=== PATIENT | female | born 1955 | race Caucasian/White ===

== ENCOUNTER 2019-08-23 02:24 | Observation (INO) | payer OTHER ==
--- OUTSIDE RECORDS SUMMARY | 2019-08-23 02:26 | XMS REPORT | Continuity of Care Document ---
:1955 Author Organization [employer] Care Team Providers Name Role Phone mobileo Unavailable Un available Problems Problem Status Onset Date Classification Date Comments Sour ce Reported 719.46 - Active 02/06/2013 [facility] S G [facility] PAIN-L/LE Joint Medications No Data Provided for This Section Allergies, Adverse Reactions, Alerts No Known Medication Allergies Immunizations No Data Provided for This Section Results No Data Provided for This Section Pathology Reports No Data Provided for This Section Diagnostic Reports Report Value Date Source Knee wo contrast MRI MRI of the right Knee 02/09/2013 OP ID [facility] History: pain. Comparison Study: none Technique: The study was pe rformed on a high field magnet without intravenous contrast. Findings: Menisci: There is no evidence of meniscal tear. Cruciate Ligaments: Anterior and posterior cruc iate ligaments are intact. Collateral Ligaments: Medial collateral ligamen t is intact. Lateral collateral complex appears intact. The patellar and quadriceps tendons are intact. Osseous Structures: No bone contusions are iden tified. The articular cartilage of the medial and latera l compartment is preserved. Soft Tissues: There is a small joint effusion . There is a 3 cm multilobulat ed Roe's cyst with fluid extending inferiorly along the fascial planes. Patellofemoral Compartment: Grade 3/4 chondromalacia is noted at the patella apex and to a lesser extent the medial facet. There is also mild grade 2 chondral malacia trochlear apex. Medial and lateral patellar retinacula appear in tact. Impression: No meniscal tear or cruciate ligament disruption . Moderate chondromalacia holguin lla femoral compartment primarily involving the patella apex and medial facet. Roe's cyst with free fluid extending inferiorly along the fascial planes to the proximal calf.. Dictation Code: 100 Consultation Notes No Data Provided for This Section Discharge Summaries No Data Provided for This Section History and Physicals No Data Provided for This Section Vital Signs No Data Provided for This Section Encounters Location Location Encounter Encounter Reason Attending ADM NE Stat us Source Details Type Number For Provider Date Date Visit OD [id number] 719.46 ALI 02/09 Active [facility] O PID - JOINT [facility] PA[facility]-L/ & Joint LE Procedures No Data Provided for This Section Assessment and Plan No Data Provided for This Section Plan of Care No Data Provided for This Section Social History No Data Provided for This Section Family History No Data Provided for This Section Advance Directives No Data Provided for This Section Functional Status No Data Provided for This Section
--- OUTSIDE RECORDS SUMMARY | 2019-08-23 02:26 | XMS REPORT | Clinical Summary ---
:1955 Author Organization [facility] Address [address] [place] [address] Care Team Providers Name Role Phone Leticia Vides MD Primary Care Provider Allergies Not on File Medications Not on file Active Problems Not on file Social History Tobacco Use Types Packs/Day Years Used Date Never Assessed Sex Assigned at Date Recorded Not on file Job Start Date Occupation Industry Not on file Not on file Not on file Travel History Travel Start Travel End No recent travel history available. 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
--- OUTSIDE RECORDS SUMMARY | 2019-08-23 02:26 | XMS REPORT ---
:1955 Author Organization [facility] t Address [address] [place] [address] Care Team Providers Name Role Phone Peewee LEVY Primary Care Physician Diallo LEVY, A Attending Clinician Doctor Unassigned, Name Attending Clinician Unavailable Problems Condition Condition Condition Status Onset Resolution Last Treating Co mments Source Name Details Category Date Date Treatment Clinician Date 46 - Diagnosis Active 2012-032013-02-09 M H OPID JOINT 04-08 17:46:00 [facility] PAIN-L/LE 719.46 - 00:01: & J oint JOINT 00 PAIN-L/LE Active 02/06/2013 MH [facility]ID [facility] Allergies, Adverse Reactions, Alerts This patient has no known allergies or adverse reactions. Social History Social Habit Start Date Stop Date Quantity Comments Source Sex Assigned At [place] Medications This patient has no known medications. Procedures This patient has no known procedures. Plan of Care Planned Activity Planned Date Details Comments Source Future Scheduled 2019-10-24 INFLUENZA VACCINE [facility] 00:00:00 [code = INFLUENZA VACCINE] Future Scheduled 2018 65+ PNEUMOCOCCAL [facility] 00:00:00 VACCINE (1 of 2 - PCV13) [code = 65+ PNEUMOCOCCAL VACCINE (1 of 2 - PCV13)] Future Scheduled 2003-12-17 BREAST CANCER [facility]odist Test 00:00:00 SCREENING [code = BREAST CANCER SCREENING] Future Scheduled 2003-12-17 COLONOSCOPY SCREENING [facility] Religion Test 00:00:00 [code = COLONOSCOPY SCREENING] Future Scheduled 2003-12-17 SHINGLES VACCINES (#1) [place] [facility] 00:00:00 [code = SHINGLES VACCINES (#1)] Future Scheduled 1974 Screening for [facility] Test 00:00:00 malignant neoplasm of cervix (procedure) [code = 373793822] Encounters Start End Encounter Admission Attending Care Care Encounter Source Date/Time Date/Time Type Type Clinicians Facility Department ID 2019-04-12 2019-04-12 [facility] [id number] 00:00:00 00:00:00 Management [facility] [id number] [place] [id number] [facility] [phone] [place] [address] [address] 2019-04-07 2019-04-07 [facility] [id number] 14:15:00 23:59:00 Encounter [facility] [place] [id number] [place] [id number] [place] [id number] 2019-04-07 2019-04-07 Office [facility] [id number] 13:04:11 13:54:35 Visit [facility] [id number] [place] [id number] [facility] [phone] [place] [address] [address] 2018-10-24 2018-10-24 Orders Doctor STACEY [id number] 00:00:00 00:00:00 Only Unassigned, GIFTY [id number] [place] [facility] [id number] 2013-02-09 2013-02-09 Outpatient MHIEALT MH[facility]ALT [id number] [facility] 17:37:00 23:59:00 Outpat i ent Imaging - Brittnee Haley 2013-02-09 2013-02-09 OD MHIEALT MHIEALT [id number] MH OPID 17:37:00 17:37:00 00 [facility] Results This patient has no known results.
[2019-08-23 03:12] LABS: Absolute Lymphocytes (CBC) 0.7 K/uL (0.7-4.9); Basophils % 1.3 % (0-1.3); Lymphocytes % 17.5 % (15.3-44.8); MPV 8.5 fL (7.6-11.3); RBC Red Blood Cell Count 4.01 M/uL (3.86-4.86)
[2019-08-23 03:13] LABS: Protime INR 0.91
[2019-08-23 03:31] LABS: ALT/SGPT 37 U/L (12-78); AST/SGOT 32 U/L (15-37); Albumin 3.7 g/dL (3.4-5.0); Alkaline Phosphatase 67 U/L (45-117); BUN Blood Urea Nitrogen 22 mg/dL (7-18); Bicarbonate 26 mmol/L (21-32); Bilirubin Direct 0.1 mg/dL (0-0.2); Bilirubin Total 0.4 mg/dL (0.2-1.0); Glucose Level 107 mg/dL (74-106); Magnesium 2.1 mg/dL (1.8-2.4); NT PRO-BNP 274 pg/mL (<125); Potassium 3.9 mmol/L (3.5-5.1); Protein, Total 6.7 g/dL (6.4-8.2); Sodium Level 141 mmol/L (136-145); Troponin (Emerg Dept Use Only) < 0.02 ng/mL (0.0-0.045)
[2019-08-23] MEDS ORDERED: ASPIRIN 81 MG CHEWABLE TABLET ONE (06:31)
--- NOTE | 2019-08-23 08:09 | P.HP ---
Certification for Inpatient Patient admitted to: Observation With expected LOS: <2 Midnights Practitioner: I am a practitioner with admitting privileges, knowledge of patient current condition, hospital course, and medical plan of care. Services: Services provided to patient in accordance with Admission requirements found in Title 42 Section 412.3 of the Code of Federal Regulations Patient History Date of Service: 08/23/19 Reason for admission: Chest pain History of Present Illness: 63-year-old woman with a history of hypertension and hyperlipidemia presented emergency department with a complaint of chest pain of onset last night. Chest pain located in the left anterior chest, radiating to the left shoulder, no relieving or aggravating factors, intermittent in nature, maximum intensity rated as 5/10. No associated nausea or diaphoresis. Patient stated she did some paint job yesterday and thinks her chest pain may be related to that. EKG in the ED demonstrates sinus bradycardia, no significant ischemic changes. Initial troponin is negative. Chest x-ray shows no acute disease. Patient is placed under observation for ACS rule out. Allergies N Allergy (Uncoded 09/02/15 00:08) Unknown NK Allergy (Uncoded 02/06/15 20:09) Unknown Home Medications: Atorvastatin Calcium [Lipitor*] 20 mg PO DAILY 09/02/15 Clopidogrel Bisulfate [Clopidogrel] 75 mg PO DAILY 09/02/15 Fluoxetine HCl 20 mg PO DAILY 09/02/15 Lisinopril 10 mg PO DAILY 09/02/15 - Past Medical/Surgical History Diabetic: No -: HTN -: TIA -: breast ca -: hyperlipidemia -: L hip repair -: L mastectomy - Family History Father -: Heart disease, Kidney disease Mother -: Heart disease - Social History Smoking Status: Never smoker Alcohol use: No CD- Drugs: No Caffeine use: Yes Review of Systems Other: Except as documented, all other systems reviewed and negative. Physical Examination - Physical Exam General: Alert, In no apparent distress, Oriented x3 HEENT: Mucous membr. moist/pink, Sclerae nonicteric Neck: Supple, JVD not distended Respiratory: Clear to auscultation bilaterally, Normal air movement Cardiovascular: No edema, Regular rate/rhythm, Normal S1 S2 Capillary refill: <2 Seconds Gastrointestinal: Normal bowel sounds, Soft and benign, No tenderness Musculoskeletal: No swelling, No erythema Integumentary: No rashes, No erythema Neurological: Normal speech, Normal strength at 5/5 x4 extr - Studies Laboratory Data (last 24 hrs) 08/23/19 02:55: PT 10.7, INR 0.91 08/23/19 02:55: WBC 3.8 L, Hgb 12.8, Hct 36.0, Plt Count 196 08/23/19 02:55: Sodium 141, Potassium 3.9, BUN 22 H, Creatinine 0.79, Glucose 107 H, Magnesium 2.1, Total Bilirubin 0.4, AST 32, ALT 37, Alkaline Phosphatase 67 Assessment and Plan - Problems (Diagnosis) (1) Chest pain Onset Date: 09/02/15 Current Visit: No Status: Acute (2) Hypertension Current Visit: Yes Status: Acute (3) Hyperlipidemia Current Visit: Yes Status: Acute - Plan Place under observation. Trend troponin Start aspirin, metoprolol. Statin Check lipid profile Reconcile and continue home BP meds. - Advance Directives Does patient have a Living Will: Yes Does patient have a Durable POA for Healthcare: Yes
[2019-08-23] MEDS: ASPIRIN EC 81 MG TAB PO SCH (09:18)
[2019-08-23] MEDS: METOPROLOL XL 25 MG TAB PO SCH ×3 (09:18→17:33)
[2019-08-23] MEDS ORDERED: NITROGLYCERIN 0.4 MG/TAB SL PRN (09:18)
[2019-08-23] MEDS: ENOXAPARIN 40 MG/0.4 ML SQ SCH (09:39)
[2019-08-23 10:42] LABS: HDL Cholesterol 73 mg/dL (40-60); LDL Cholesterol, Calculated 68 (<130); Troponin I < 0.02 ng/mL (0.0-0.045)
--- NOTE | 2019-08-23 11:31 | RAD REPORT ---
EXAM DESCRIPTION: Junit Single View08/23/2019 3:11 am CLINICAL HISTORY: Chest pain COMPARISON: 2016 FINDINGS: Lungs are hyperaerated. Inferior lung bases are not entirely included in the field of view and are not evaluated Visualized lungs appear clear of acute infiltrate. Heart is mildly enlarged
[2019-08-23] MEDS ORDERED: METOPROLOL XL 25 MG TAB PO SCH (13:57)
--- NOTE | 2019-08-23 14:05 | EKG ---
Test Date: 2019-08-23 Test Time: 02:41:56 Video Software Engineer: RV MEASUREMENT RESULTS: Intervals: Rate: 59 ID: [id number] QRSD: 76 QT: 478 QTc: 473 [place]: P: 60 ID: [id number] QRS: 1 T: 35 INTERPRETIVE STATEMENTS: Sinus bradycardia Minimal voltage criteria for LVH, may be normal variant Borderline ECG Electronically Signed On 08-23-19 14:04:59 CDT by Shane Chavez
[2019-08-23] MEDS: MORPHINE 4 MG/ML SYR IV PRN ×2 (14:38→20:40)
--- NOTE | 2019-08-23 19:36 | CON ---
Date of Consultation: 08/23/2019 Reason For Consultation: Chest pain. History Of Present Illness: This is a 63-year-old female with history of dyslipidemia, hypertension, CVA. She is on Plavix for that, presented with chest pain last night, left-sided, sharp in nature, radiates to the shoulder, lasted about 30 minutes and went away. She went to sleep and the pain woke her up again around 1:30 and she presented to the emergency room. Feels well now, no chest pain. S he reported doing some painting work at home and she is not sure if that what caused the symptoms. S he reported having stress test done about 2 years ago. She is active, otherwise, no chest pain, no s hortness of breath, or orthopnea. Past Medical History: As outlined above in the HPI. Medications: Refer to reconciliation sheet for detailed list. Allergies: NO KNOWN DRUG ALLERGIES. Social History: She does not smoke or drink. Does not use any drugs. Family History: No premature coronary artery disease or cancer. Review of Systems: All systems reviewed and they were negative except what is mentioned in the HPI. Physical Examination: Vital Signs: Temperature is 97.3, pulse 57, breathing at 18, blood pressure 133/62, saturating 96% o n room air. General: Pleasant middle-aged female, thin body habitus, no apparent distress. Head and Neck: Pupils are equal and reactive to light. Intact eye movements. No JVD. No cervical lymphadenopathy. Neck: Supple. Thyroid is not enlarged. Lungs: Clear to auscultation bilaterally. No rhonchi, rales, or crackles. No accessory muscle use. Heart: Regular rate and rhythm. No extra sounds. Abdomen: Soft, nontender. Bowel sounds positive. No organomegaly. No masses or hernia. No rigidi ty or rebound. Extremities: No edema, clubbing, cyanosis. Intact pulses. Skin: No rash. Neurologic: Alert, awake, and oriented x3. No acute focal deficits appreciated. Laboratory Data: HDL cholesterol 73, LDL 68. Creatinine is 0.79. Troponin x3 are negative. EKG is normal sinus rhythm without acute specific abnormalities. Assessment And Recommendations: 1.Chest pain with risk factors including age, hypertension, dyslipidemia, and history of vascular di sease with cerebrovascular accident in the past. Recommend further evaluation with stress test. Dis cussed the options with the patient obtaining the stress test while in the hospital and she elected t o go home and do the test as an outpatient. We will schedule her for exercise nuclear stress test an d obtain echo as an outpatient. Meanwhile, recommend aspirin 81 mg and continue metoprolol and to re port any further chest pain back in the emergency room. 2.Hypertension, which is well controlled. 3.Dyslipidemia. Excellent lipid profile. Continue current management. I appreciate you letting me see this patient in consultation. /JESSICA Voice ID: [id number] Report ID: [id number]
[2019-08-24 05:33] LABS: Absolute Lymphocytes (CBC) 0.6 K/uL (0.7-4.9); Basophils % 1.2 % (0-1.3); Hematocrit 38.3 % (36.0-45.0); Lymphocytes % 15.2 % (15.3-44.8); MPV 8.1 fL (7.6-11.3); RBC Red Blood Cell Count 4.22 M/uL (3.86-4.86)
[2019-08-24 05:46] LABS: Potassium 4.1 mmol/L (3.5-5.1)
[2019-08-24] MEDS: METOPROLOL XL 25 MG TAB PO SCH (06:00)
[2019-08-24 07:59] VITALS: O2SAT 98
[2019-08-24] MEDS: ENOXAPARIN 40 MG/0.4 ML SQ SCH (08:54)
[2019-08-24] MEDS: ASPIRIN EC 81 MG TAB PO SCH (08:54)
[2019-08-24 09:00] VITALS: BP 115/54
[2019-08-24] MEDS ORDERED: ATORVASTATIN 20 MG TAB PO SCH (09:00)
[2019-08-24] MEDS ORDERED: lisinopriL 10 MG TAB PO SCH (09:00)
[2019-08-24] MEDS ORDERED: FLUOXETINE 20 MG CAP PO SCH (09:00)
[2019-08-24] MEDS ORDERED: CLOPIDOGREL 75 MG TABLET PO SCH (09:00)
[2019-08-24 09:35] VITALS: TEMP 97.8
--- NOTE | 2019-08-24 18:38 | ER ---
Nurse's Notes [facility] Name: Darlin Ireland Age: 63 yrs Sex: Female : 1955 Arrival Date: 08/23/2019 Time: 02:26 Bed 8 Private MD: Diagnosis: Other chest pain Presentation: 08/22 02:33 Chief complaint: Patient states: CHEST PAIN STARTED AN HOUR AGO. APPLIED WARM COMPRESS rv AND IT DID NOT HELP. LEFT SIDE, ON AND OFF, 5/10 PAIN SCALE. SHARP AND NON RADIATING. Coronavirus screen: Proceed with normal triage. Ebola Screen: No symptoms or risks identified at this time. Initial Sepsis Screen: Does the patient meet any 2 criteria? No. Patient's initial sepsis screen is negative. Does the patient have a suspected source of infection? No. Patient's initial sepsis screen is negative. Risk Assessment: Do you want to hurt yourself or someone else? Patient reports no desire to harm self or others. Onset of symptoms was August 23, 2019 at 01:00. 02:33 Method Of Arrival: Ambulatory rv 02:33 Acuity: RAISA 3 rv Triage Assessment: 02:47 General: Appears comfortable, Behavior is calm, cooperative. Pain: Complains of pain in rv anterior aspect of left upper chest Pain does not radiate. Pain currently is 5 out of 10 on a pain scale. Quality of pain is described as sharp, Pain began suddenly, 1 hour ago. Is intermittent. Neuro: Level of Consciousness is awake, alert, obeys commands, Oriented to person, place, time, situation. Cardiovascular: Patient's skin is warm and dry. Rhythm is sinus rhythm. Respiratory: Airway is patent. Derm: Skin is intact. Historical: - Allergies: 02:47 No Known Allergies; rv - PMHx: 02:47 breast cancer; Hyperlipidemia; Hypertension; sarcoidosis; TIA; rv - PSHx: 02:47 HIP SX; rv - Immunization history:: Adult Immunizations up to date. - Social history:: Smoking status: Patient denies any tobacco usage or history of. Screenin:48 Abuse screen: Denies threats or abuse. Denies injuries from another. Nutritional rv screening: No deficits noted. Tuberculosis screening: No symptoms or risk factors identified. Fall Risk None identified. Assessment: 04:14 Reassessment: Patient and/or family updated on plan of care and expected duration. Pain rv level reassessed. Patient is alert, oriented x 3, equal unlabored respirations, skin warm/dry/pink. Patient states feeling better. Patient states symptoms have improved. 06:30 Reassessment: Patient and/or family updated on plan of care and expected duration. Pain rv level reassessed. Patient is alert, oriented x 3, equal unlabored respirations, skin warm/dry/pink. patient updated on the admission plans. patient agreed. symptoms are resolving at this time. 07:25 Reassessment: Repeat troped sent to lab. sv 07:25 General: Appears in no apparent distress. comfortable, well developed, Behavior is sv calm, cooperative, appropriate for age. Pain: Complains of pain in anterior aspect of left upper chest Pain currently is 5 out of 10 on a pain scale. Neuro: Level of Consciousness is awake, alert, obeys commands, Oriented to person, place, time, situation, Moves all extremities. Full function Speech is normal. Cardiovascular: Heart tones S1 S2 present Patient's skin is warm and dry. Pulses are palpable in right radial artery and left radial artery Rhythm is sinus bradycardia. Respiratory: Airway is patent Respiratory effort is even, unlabored, Respiratory pattern is regular, symmetrical, Breath sounds are clear bilaterally. Derm: Skin is pink, warm \T\ dry. 07:52 Reassessment: Attempted to call report, nurse to call back. sv 08:40 Reassessment: Patient appears in no apparent distress at this time. Patient and/or ph family updated on plan of care and expected duration. Pain level reassessed. Report given to Palomo TAY. Vital Signs: 02:33 BP 141 / 65; Pulse 63; Resp 16; Temp 98; Pulse Ox 99% ; Weight 54.43 kg; Height 5 ft. 5 rv in. (165.10 cm); Pain 5/10; 03:42 BP 136 / 81; Pulse 50; Resp 15; Pulse Ox 98% on R/A; rv 04:14 BP 122 / 72; Pulse 52; Resp 13; Temp 98; Pulse Ox 98% on R/A; rv 05:19 BP 112 / 66; Pulse 53; Resp 15; Pulse Ox 97% on R/A; rv 06:13 BP 131 / 76; Pulse 56; Resp 14; Pulse Ox 98% on R/A; rv 07:13 BP 124 / 78; Pulse 53; Resp 15; Pulse Ox 97% ; sv 08:17 BP 116 / 70; Pulse 52; Resp 13; Pulse Ox 97% ; sv 02:33 Body Mass Index 19.97 (54.43 kg, 165.10 cm) rv ED Course: 02:26 Patient arrived in ED. ds1 02:30 Tod Tan, JASVIR is Primary Nurse. rv 02:31 Emmanuel Villanueva MD is Attending Physician. mh7 02:46 Triage completed. rv 02:48 Arm band placed on Patient placed in the treatment room, on a stretcher, Patient rv notified of wait time. 02:48 Patient has correct armband on for positive identification. dry house operator on. Pulse rv ox on. NIBP on. 02:48 No provider procedures requiring assistance completed. Patient maintains SpO2 rv saturation greater than 95% on room air. 02:56 Initial lab(s) drawn, by me, sent to lab. EKG done, by ED staff, reviewed by Emmanuel Villanueva MD. Inserted saline lock: 18 gauge in right forearm, using aseptic technique. Blood collected. 03:11 XRAY Chest (1 view) In Process Unspecified. EDMS 06:16 Mckinley Castro is Hospitalizing Provider. mh7 07:04 Primary Nurse role handed off by Tod Tan RN sv 07:04 Juliana Holliday, JASVIR is Primary Nurse. sv 07:36 Troponin (emerg Dept Use Only) Sent. sv 08:37 Patient admitted, IV remains in place. intact. sv Administered Medications: 06:26 Drug: Aspirin Chewable Tablet 324 mg Route: PO; rv 06:53 Follow up: Response: No adverse reaction rv Outcome: 06:16 Decision to Hospitalize by Provider. mh7 08:38 Admitted to Tele accompanied by tech, via stretcher, room 219, with chart, Report sv called to Palomo TAY 08:38 Condition: stable 08:38 Instructed on the need for admit. 08:45 Patient left the ED. sv Signatures: Dispatcher [employer] EDFL Juliana Holliday RN RN sv Sanford, Demi ds1 Damaris Carter RN RN Tod Tan RN RN rv Holmes, Maurice, MD MD [facility]
--- NOTE | 2019-08-24 18:39 | EDPHYS ---
Physician Documentation [facility] Name: Darlin Ireland Age: 63 yrs Sex: Female : 1955 Arrival Date: 08/23/2019 Time: 02:26 Bed 8 Private MD: ED Physician Emmanuel Villanueva HPI: 08/22 04:26 This 63 yrs old Female presents to ER via Ambulatory with complaints of Chest mh7 Pain,. 04:26 The patient or guardian reports chest pain that is located primarily in the anterior mh7 chest wall, left. Onset: last night. The pain radiates to left neck. Associated signs and symptoms: Pertinent negatives: abdominal pain, cough, diaphoresis, dizziness, headache, lower extremity pain, lower extremity swelling, lightheadedness, nausea, near syncope, palpitations, recent travel, shortness of breath, syncope, vomiting. The chest pain is described as sharp. Duration: The patient or guardian reports multiple episodes, that are intermittent, that wax and wane, with no pattern. Modifying factors: The symptoms are alleviated by nothing. the symptoms are aggravated by nothing. Severity of pain: At its worst the pain was moderate today, in the emergency department the pain has improved moderately. Historical: - Allergies: 02:47 No Known Allergies; rv - PMHx: 02:47 breast cancer; Hyperlipidemia; Hypertension; sarcoidosis; TIA; rv - PSHx: 02:47 HIP SX; rv - Immunization history:: Adult Immunizations up to date. - Social history:: Smoking status: Patient denies any tobacco usage or history of. ROS: 04:26 Constitutional: Negative for fever, chills, and weight loss, Eyes: Negative for injury, mh7 pain, redness, and discharge, ENT: Negative for injury, pain, and discharge, Respiratory: Negative for shortness of breath, cough, wheezing, and pleuritic chest pain, Abdomen/GI: Negative for abdominal pain, nausea, vomiting, diarrhea, and constipation, Back: Negative for injury and pain, : Negative for injury, bleeding, discharge, and swelling, MS/Extremity: Negative for injury and deformity, Skin: Negative for injury, rash, and discoloration, Neuro: Negative for headache, weakness, numbness, tingling, and seizure, Psych: Negative for depression, anxiety, suicide ideation, homicidal ideation, and hallucinations, Allergy/Immunology: Negative for hives, rash, and allergies, Endocrine: Negative for neck swelling, polydipsia, polyuria, polyphagia, and marked weight changes, Hematologic/Lymphatic: Negative for swollen nodes, abnormal bleeding, and unusual bruising. Exam: 04:26 Constitutional: This is a well developed, well nourished patient who is awake, alert, mh7 and in no acute distress. Head/Face: Normocephalic, atraumatic. Eyes: Pupils equal round and reactive to light, extra-ocular motions intact. Lids and lashes normal. Conjunctiva and sclera are non-icteric and not injected. Cornea within normal limits. Periorbital areas with no swelling, redness, or edema. Neck: Trachea midline, no thyromegaly or masses palpated, and no cervical lymphadenopathy. Supple, full range of motion without nuchal rigidity, or vertebral point tenderness. No Meningismus. Chest/axilla: Normal chest wall appearance and motion. Nontender with no deformity. No lesions are appreciated. Cardiovascular: Regular rate and rhythm with a normal S1 and S2. No gallops, murmurs, or rubs. Normal PMI, no JVD. No pulse deficits. Respiratory: Lungs have equal breath sounds bilaterally, clear to auscultation and percussion. No rales, rhonchi or wheezes noted. No increased work of breathing, no retractions or nasal flaring. Abdomen/GI: Soft, non-tender, with normal bowel sounds. No distension or tympany. No guarding or rebound. No evidence of tenderness throughout. Back: No spinal tenderness. No costovertebral tenderness. Full range of motion. Skin: Warm, dry with normal turgor. Normal color with no rashes, no lesions, and no evidence of cellulitis. MS/ Extremity: Pulses equal, no cyanosis. Neurovascular intact. Full, normal range of motion. Neuro: Awake and alert, GCS 15, oriented to person, place, time, and situation. Cranial nerves II-XII grossly intact. Motor strength 5/5 in all extremities. Sensory grossly intact. Cerebellar exam normal. Normal gait. Psych: Awake, alert, with orientation to person, place and time. Behavior, mood, and affect are within normal limits. Vital Signs: 02:33 BP 141 / 65; Pulse 63; Resp 16; Temp 98; Pulse Ox 99% ; Weight 54.43 kg; Height 5 ft. 5 rv in. (165.10 cm); Pain 5/10; 03:42 BP 136 / 81; Pulse 50; Resp 15; Pulse Ox 98% on R/A; rv 04:14 BP 122 / 72; Pulse 52; Resp 13; Temp 98; Pulse Ox 98% on R/A; rv 05:19 BP 112 / 66; Pulse 53; Resp 15; Pulse Ox 97% on R/A; rv 06:13 BP 131 / 76; Pulse 56; Resp 14; Pulse Ox 98% on R/A; rv 07:13 BP 124 / 78; Pulse 53; Resp 15; Pulse Ox 97% ; sv 08:17 BP 116 / 70; Pulse 52; Resp 13; Pulse Ox 97% ; sv 02:33 Body Mass Index 19.97 (54.43 kg, 165.10 cm) rv MDM: 02:53 Patient medically screened. [facility] 06:14 Differential diagnosis: acute myocardial infarction, acute pericarditis, coronary mh7 artery disease congestive heart failure pneumonia, stable angina. HEART Score: History: Moderately Suspicious (1), ECG: Normal (0), Age: > or = 65 years (2), Risk Factors: 1 or 2 risk factors (1), [Hypercholesterolemia] [Hypertension] Troponin: < or = 1 x Normal Limit (0), Total Score = 4. Data reviewed: vital signs, nurses notes, lab test result(s), EKG, radiologic studies, plain films. 08/22 02:55 Order name: Basic Metabolic Panel; Complete Time: 05:14 08/22 02:55 Order name: CBC with Diff; Complete Time: 05:14 08/22 02:55 Order name: LFT's; Complete Time: 05:14 08/22 02:55 Order name: Magnesium; Complete Time: 05:14 08/22 02:55 Order name: NT PRO-BNP; Complete Time: 05:14 08/22 02:55 Order name: PT-INR; Complete Time: 05:14 08/22 02:55 Order name: Troponin (emerg Dept Use Only); Complete Time: 05:14 08/22 02:55 Order name: XRAY Chest (1 view) rv 08/22 02:55 Order name: EKG; Complete Time: 02:56 08/22 02:55 Order name: Cardiac monitoring; Complete Time: 02:55 08/22 02:55 Order name: EKG - Nurse/Tech; Complete Time: 02:55 08/22 07:17 Order name: Troponin (emerg Dept Use Only) 08/22 07:54 Order name: Troponin (Emerg Dept Use Only) [facility] 08/22 02:55 Order name: IV Saline Lock; Complete Time: 02:55 08/22 02:55 Order name: Labs collected and sent; Complete Time: 02:55 08/22 02:55 Order name: O2 Per Protocol; Complete Time: 02:56 08/22 02:55 Order name: O2 Sat Monitoring; Complete Time: 02:55 rv Administered Medications: 06:26 Drug: Aspirin Chewable Tablet 324 mg Route: PO; rv 06:53 Follow up: Response: No adverse reaction rv Disposition: 08/23/19 06:16 Hospitalization ordered by Mckinley Castro for Observation. Preliminary diagnosis is Other chest pain. - Bed requested for Telemetry/MedSurg (observation). - Status is Observation. sv - Condition is Stable. - Problem is new. - Symptoms have improved. Signatures: Dispatcher [employer] EDME Juliana Holliday RN RN sv Botello, Elizabeth eb Vicente, Ronaldo, RN RN rv Holmes, Maurice, MD MD mh7 Corrections: (The following items were deleted from the chart) 07:46 06:16 Hospitalization Ordered by Mckinley Castro for Observation. Preliminary diagnosis eb is Other chest pain. Bed requested for Telemetry/MedSurg (observation). Status is Observation. Condition is Stable. Problem is new. Symptoms have improved. mh7 08:45 07:46 08/23/2019 06:16 Hospitalization Ordered by Mckinley Castro for Observation. sv Preliminary diagnosis is Other chest pain. Bed requested for Telemetry/MedSurg (observation). Status is Observation. Condition is Stable. Problem is new. Symptoms have improved. eb
--- NOTE | 2019-08-24 23:38 | DS ---
Date of Discharge: 08/24/2019 Consultants: Dr. Piper with Cardiology. Discharge Diagnoses: 1.Chest pain, acute coronary syndrome ruled out. 2.Essential hypertension, stable. 3.Mixed hyperlipidemia, stable. 4.History of transient ischemic attack. 5.History of breast cancer. Hospital Course: Patient is a 63-year-old female with past medical history of hypertension, hyperlip idemia, TIA, breast cancer, comes in with chest pain. Patient was admitted to the hospital for furth er evaluation. Cardiac enzymes were negative x3. Her lipid panel showed normal levels. HDL was 73. Her chest x-ray was clear. EKG did not show any acute changes, did show some sinus bradycardia. P rufino was seen by Cardiology and Dr. Piper recommended outpatient workup including cardiac stress t est and echocardiogram. Patient did have some continued pain during the day, however, became asympto matic with treatment. She was then ruled out for ACS and was cleared for discharge for outpatient wo rkup and followup. Patient was asymptomatic. Patient will be continued on beta-blockers. Patient t o follow up with primary care physician in 2-3 days. Follow up with angiography nurse, Dr. Piper in 1 we ek for outpatient stress test and echocardiogram. Return to ER for worsening condition. Continue ca ncer screenings including mammograms. Diet: Heart healthy. Activity: As tolerated. Medications: As per medication reconciliation list. Physical Examination: General: Awake, alert, oriented x3. No acute distress elderly female. CV: S1, S2. No murmurs. Respiratory: Moving air well bilaterally. Abdomen: Soft, nontender, nondistended. Positive bowel sounds. Extremities: No clubbing, cyanosis, or edema. Neurologic: Nonfocal. Code Status: Full. SA/MODL Voice ID: [id number] Report ID: [id number]
== END 2019-08-24 10:12 | disposition home or self-care (01) ==
LOC: ER 02:24 → ERHOLD 07:06 → 2ND 08:38
PROVIDERS: ADMIT Internal Medicine; ATTEND Family Medicine
DX: R07.9 Chest pain, unspecified (principal); E78.2 Mixed hyperlipidemia; I10 Essential (primary) hypertension; Z86.73 Personal history of transient ischemic attack (TIA), and cerebral infarction without residual deficits; Z85.3 Personal history of malignant neoplasm of breast
CPT/HCPCS: 93005; 85025 ×2; 80048 ×2; 36415 ×2; 83735; 85610; 80061; 80076; 84484 ×4; 83880; 71045; 99285; J1650 ×2; G0378 ×3

== ENCOUNTER 2024-10-27 19:29 | Inpatient (IN) | payer BC, OTHER ==
[2024-10-27] MEDS ORDERED: METOPROLOL TARTRATE 5 MG/5 ML INJ IV ONE (20:55)
[2024-10-27] MEDS ORDERED: METOPROLOL TAR 25 MG TAB ONE (20:55)
[2024-10-27 21:03] LABS: Urine Microscopic Reflex YN NO UMIC
[2024-10-27 21:07] LABS: Absolute Lymphocytes (CBC) 0.6 K/uL (0.7-4.9); Hematocrit 35.2 % (36.0-45.0); Hemoglobin 12.8 g/dL (12.0-15.0); MCH 31.5 pg (27.0-35.0); MCHC 36.3 g/dL (32.0-36.0); MCV 86.8 fL (80-100); MPV 8.2 fL (7.6-11.3); Nucleated RBC Absolute Count 0.0 (0-0); Nucleated Red Blood Cells % 0.1 % (0-0); RBC Red Blood Cell Count 4.06 M/uL (3.86-4.86); White Blood Count 4.00 thou/uL (4.3-10.9)
[2024-10-27 21:11] LABS: PT Prothrombin Time 11.4 SECONDS (10-13.0); Protime INR 1.01
--- NOTE | 2024-10-27 21:18 | RAD REPORT ---
EXAMINATION: ONE VIEW CHEST XR CLINICAL INDICATION: PALPITATIONS TECHNIQUE: Frontal chest projection is submitted. Examination is limited by patient positioning and t echnique. COMPARISON: 08/23/2019 FINDINGS: The lungs are diffusely emphysematous but grossly clear. The heart is upper limit of normal in size. No displaced fractures identified. IMPRESSION: COPD without an acute process suspected.
[2024-10-27 21:23] LABS: ALT/SGPT 42.0 U/L (13-56); AST/SGOT 32.0 U/L (15-37); Albumin 3.7 g/dL (3.4-5.0); Albumin/Globulin Ratio 1.3 (1.1-1.8); Alkaline Phosphatase 77.0 U/L (45-117); Anion Gap 9.5 mEq/L (5.0-15.0); BUN Blood Urea Nitrogen 17.0 mg/dL (7-18); Bilirubin Indirect, Calculated 0.4 mg/dL (0.2-0.8); Globulin 2.8 g/dL (2.3-3.5); Glucose Level 115.0 mg/dL (74-106); Magnesium 2.1 mg/dL (1.6-2.4); NT PRO-BNP 792.0 pg/mL (<125); Potassium 3.5 mEq/L (3.5-5.1); Troponin High Sensitivity 15.8 pg/mL (<58.9)
--- NOTE | 2024-10-27 22:01 | RAD REPORT ---
EXAMINATION: CTA CHEST PE CLINICAL INDICATION: PALPITATIONS TECHNIQUE: This examination was performed according to an angiographic protocol with 3D post-processi ng. This involves 3D reconstructions, MIPs, volume rendered images and/or shaded surface rendering. One or more of the following dose reduction techniques were used: Automated exposure control, adjustm ent of the mA and/or kV according to patient size, and/or iterative reconstruction. Unless otherwise specified, incidental findings do not require dedicated imaging follow-up. COMPARISON: 09/01/2015 FINDINGS: PULMONARY ARTERIES: Normal caliber. No evidence of pulmonary emboli to the subsegmental level. THORACIC AORTA: Normal caliber and configuration. Intraluminal assessment not possible due to lack of contrast opacification. LUNGS: Multiple calcified and noncalcified nodules are present, greatest in the right lower lobe.. PLEURA: No pleural effusion. No pneumothorax. MEDIASTINUM AND LYMPH NODES: Calcified mediastinal and hilar lymph nodes. OSSEOUS STRUCTURES AND CHEST WALL: Intact. UPPER ABDOMEN: No significant abnormalities. IMPRESSION: No evidence of pulmonary emboli to the subsegmental level. Numerous calcified and noncalcified nodules greatest in the right lower lobe. Suggest nonemergent fol low-up pulmonology consultation and imaging follow-up per Fleischner criteria.
[2024-10-27] MEDS ORDERED: NA CHLORIDE 0.9% 500 ML ONE (22:32)
--- NOTE | 2024-10-27 23:36 | EDPHYS ---
Physician Documentation [facility] Name: Dralin Ireland Age: 68 yrs Sex: Female : 1955 Arrival Date: 10/27/2024 Time: 19:29 Bed 19 Private MD: ED Physician Hakeem Luther HPI: 10/27 20:15 This 68 yrs old Female presents to ER via Ambulatory with complaints of Irregular Pulse.cp 20:15 The patient presents with a history of irregular heart beat, heart racing. Context: The cp symptoms occur at rest, intermittent. 20:15 Onset: The symptoms/episode began/occurred 1 week(s) ago, and became persistent today. cp Associated signs and symptoms: Pertinent positives: chest pain, Pertinent negatives: cough, fever, SOB, syncope, near-syncope, vomiting. Severity of symptoms: in the emergency department the symptoms are unchanged despite home interventions. Historical: - Allergies: 20:11 No Known Allergies; tb4 - Home Meds: 20:11 lisinopril 10 mg Oral tab 1 tab once daily for Hypertension [Active]; clopidogrel 75 mg tb4 Oral tab 1 tab once daily [Active]; atorvastatin 20 mg Oral tab 1 tab once daily for Mixed Hyperlipidemia [Active]; - PMHx: 20:11 breast cancer; Hyperlipidemia; Hypertension; sarcoidosis; TIA; tb4 - Immunization history:: Adult Immunizations up to date. - Infectious Disease History:: Denies. - Social history:: Smoking status: Patient denies any tobacco usage or history of. Patient/guardian denies using alcohol, street drugs, IV drugs. ROS: 20:25 Cardiovascular: Positive for chest pain, palpitations, Negative for edema, cp 20:25 Eyes: Negative for injury, pain, redness, and discharge, cp 20:25 Constitutional: Negative for body aches, chills, fever, poor PO intake, 20:25 ENT: Negative for drainage from ear(s), ear pain, sore throat, difficulty swallowing, difficulty handling secretions, 20:25 Respiratory: Negative for cough, shortness of breath, wheezing, 20:25 Abdomen/GI: Negative for abdominal pain, vomiting, diarrhea, constipation, 20:25 Back: Negative for pain at rest, pain with movement, 20:25 Neuro: Negative for altered mental status, dizziness, headache, syncope, near syncope, weakness, 20:25 All other systems are negative, Exam: 20:25 Constitutional: The patient appears in no acute distress, alert, awake, cp non-diaphoretic, non-toxic, well developed, well nourished, 20:25 Head/Face: Normocephalic, atraumatic. cp 20:25 Eyes: Periorbital structures: appear normal, Conjunctiva: normal, no exudate, no injection, Sclera: no appreciated abnormality, Lids and lashes: appear normal, bilaterally, 20:25 ENT: External ear(s): are unremarkable, Nose: is normal, Mouth: Lips: moist, Oral mucosa: moist, Posterior pharynx: Airway: no evidence of obstruction, patent, 20:25 Chest/axilla: Inspection: normal, Palpation: is normal, no crepitus, no tenderness, 20:25 Cardiovascular: Rate: tachycardic, Rhythm: regular, Edema: is not appreciated, JVD: is not appreciated, 20:25 Respiratory: the patient does not display signs of respiratory distress, Respirations: normal, no use of accessory muscles, no retractions, labored breathing, is not present, Breath sounds: are clear throughout, no decreased breath sounds, no stridor, no wheezing, 20:25 Abdomen/GI: Inspection: abdomen appears normal, Palpation: abdomen is soft and non-tender, in all quadrants, 20:25 Back: pain, is absent, ROM is normal, 20:25 Neuro: Orientation: to person, place \T\ time. Mentation: is normal, Motor: moves all fours, strength is normal, Sensation: is normal, Gait: is steady, at a normal pace, without difficulty, 20:35 ECG was reviewed by the Attending Physician. cp Vital Signs: 20:08 BP 134 / 84; Pulse 120; Resp 18; Temp 98.7(O); Pulse Ox 97% on R/A; Weight 54.43 kg; tb4 Height 5 ft. 4 in. ; Pain 0/10; 20:34 BP 124 / 86; Pulse 109; Resp 20; Pulse Ox 96% ; sd4 22:26 BP 119 / 69; Pulse 60; Resp 18; Pulse Ox 97% ; sd4 0806 00:43 BP 111 / 61; Pulse 55; Resp 18; Pulse Ox 95% on R/A; sd4 0805 20:08 Body Mass Index 20.60 (54.43 kg, 162.56 cm) tb4 10/27 20:08 Pain Scale: Adult tb4 MDM: 10/27 20:09 Medical Screening Exam initiated cp 23:35 Data reviewed: vital signs, nurses notes, lab test result(s), EKG, radiologic studies, cp CT scan, plain films, and as a result, I will admit patient. 23:35 Differential diagnosis: arrythmia, dehydration, stress disorder, acute MA. Management cp of patient was discussed with the following: Hospitalist: MR Grissom will admit after discussion. Care significantly affected by the following chronic conditions: Hypertension, Cancer. Counseling: I had a detailed discussion with the patient and/or guardian regarding the historical points, exam findings, and any diagnostic results supporting the discharge/admit diagnosis, lab results, radiology results. Response to treatment: the patient's symptoms have markedly improved after treatment, and as a result, I will admit patient. 10/27 20:15 Order name: Basic Metabolic Panel; Complete Time: 21:43 cp 10/27 23:19 Interpretation: Normal except: GLUC 115; GFR 80. cp 10/27 20:15 Order name: CBC with Diff; Complete Time: 21:43 cp 10/27 20:15 Order name: LFT's; Complete Time: 21:43 cp 10/27 20:15 Order name: Magnesium; Complete Time: 21:43 cp 10/27 20:15 Order name: NT PRO-BNP; Complete Time: 21:43 cp 10/27 20:15 Order name: PT-INR; Complete Time: 21:21 cp 10/27 20:15 Order name: Troponin HS; Complete Time: 21:43 cp 05 23:19 Interpretation: Reviewed. cp 10/27 20:15 Order name: UA Rfx Landen Cult if indicated; Complete Time: 21:21 cp 10/27 23:18 Order name: Troponin High Sensitivity cp 10/28 00:39 Order name: CBC with Automated Diff EDMS 10/28 00:39 Order name: CBC with Automated Diff EDMS 10/28 00:39 Order name: CBC with Automated Diff EDMS 10/28 00:39 Order name: CBC with Automated Diff EDMS 10/28 00:39 Order name: Comprehensive Metabolic Panel EDMS 10/28 00:39 Order name: Comprehensive Metabolic Panel EDMS 06 00:39 Order name: Comprehensive Metabolic Panel EDMS 08 00:39 Order name: Comprehensive Metabolic Panel EDMS 08 00:39 Order name: Troponin High Sensitivity EDMS 08 00:39 Order name: Troponin High Sensitivity EDMS 08 00:39 Order name: Troponin High Sensitivity EDMS 08 00:39 Order name: Troponin High Sensitivity EDMS 08/05 20:15 Order name: XRAY Chest (1 view); Complete Time: 21:21 cp 08/05 20:30 Order name: CT Chest For PE Angio; Complete Time: 22:24 cp 08/ 00:56 Order name: Echo with Doppler EDMS 08 00:56 Order name: Echo with Doppler EDMS 08 20:09 Order name: EKG; Complete Time: 20:10 cp 08/05 20:15 Order name: EKG; Complete Time: 20:16 cp 08/06 00:39 Order name: EKG Electrocardiogram EDMS 08 00:39 Order name: EKG Electrocardiogram EDMS 10/28 00:39 Order name: EKG Electrocardiogram EDMS 10/27 20:09 Order name: EKG - Nurse/Tech; Complete Time: 20:34 cp 08/05 20:15 Order name: Cardiac monitoring; Complete Time: 20:50 cp 08/05 20:15 Order name: IV Saline Lock; Complete Time: 20:50 cp 08/05 20:15 Order name: Labs collected and sent; Complete Time: 20:51 cp 08/05 20:15 Order name: O2 Per Protocol; Complete Time: 20:51 cp /05 20:15 Order name: O2 Sat Monitoring; Complete Time: 20:51 cp EC:35 Rate is 110 beats/min. Rhythm is regular. KS interval is normal. QRS interval is cp normal. QT interval is normal. T waves are Inverted in lead aVR. Interpreted by me. Reviewed by me. Administered Medications: 21:02 Drug: Metoprolol IVP 2.5 mg IVP once Route: IVP; Site: right antecubital; 10/28 00:45 Follow up: Response: No adverse reaction 10/27 21:02 Drug: Metoprolol PO 12.5 mg PO once Route: PO; 10/28 00:45 Follow up: Response: No adverse reaction 10/27 22:36 Drug: NS 0.9% IV 500 ml 500 ml IV at 1 bolus once; to be given as a bolus over 30 sd4 minutes Volume: 500 ml; Route: IV; Rate: 1 bolus; Site: right forearm; 10/28 00:44 Follow up: Response: No adverse reaction; IV Status: Completed infusion 10/27 23:51 Drug: Aspirin PO Chewable Tablet 324 mg PO once; 81 mg tablets x 4 Route: PO; 10/28 00:44 Follow up: Response: No adverse reaction 4 Disposition: 06:51 Co-signature as Attending Physician, Hakeem Luther MD I reviewed the patient's care rn provided by the Advanced Practice Provider and agree with the diagnosis and treatment plan. Disposition Summary: 10/27/24 23:35 Hospitalization Ordered Notes: Hospitalization Status: Observation cp Provider: Arnol Grissom cp Location: Telemetry/MedSurg (observation) cp Condition: Stable cp Problem: new cp Symptoms: have improved cp Bed/Room Type: Standard cp Room Assignment: 409(10/27/24 23:59) vk Diagnosis - Palpitations cp - Chest pain, unspecified cp Forms: - Medication Reconciliation Form cp - SBAR form cp - Leadership Thank You Letter cp Signatures: Dispatcher [employer] EDHakeem Brizuela MD MD rn Page, Corey, PA PA cp Kruse, Vivian vk Brown, Terri, RN RN tb4 Naomie Velasquez RN RN sd4 Corrections: (The following items were deleted from the chart) 10/27 23:35 cp vk
--- NOTE | 2024-10-27 23:36 | ER ---
Nurse's Notes [facility] Name: Darlin Ireland Age: 68 yrs Sex: Female : 1955 Arrival Date: 10/27/2024 Time: 19:29 Bed 19 Private MD: Diagnosis: Palpitations;Chest pain, unspecified Presentation: 10/27 20:08 Chief complaint: Patient states: Fast heart beat at rest that began over one week ago. tb4 Coronavirus screen: At this time, the client does not indicate any symptoms associated with coronavirus-19. Ebola Screen: No symptoms or risks identified at this time. Initial Sepsis Screen: Does the patient meet any 2 criteria? No. Patient's initial sepsis screen is negative. Does the patient have a suspected source of infection? No. Patient's initial sepsis screen is negative. Risk Assessment: Do you want to hurt yourself or someone else? Patient reports no desire to harm self or others. Onset of symptoms was October 14, 2024. Care prior to arrival: None. 20:08 Method Of Arrival: Ambulatory tb4 20:08 Acuity: RAISA 3 tb4 Triage Assessment: 20:11 General: Appears in no apparent distress. Behavior is calm, cooperative. Pain: Denies tb4 pain. Neuro: No deficits noted. Level of Consciousness is awake, alert, obeys commands, Oriented to person, place, time, situation, Employee Placement Specialist are equal bilaterally Moves all extremities. Full function Gait is steady, Speech is normal, Facial symmetry appears normal, Cardiovascular: Reports palpitations, Denies chest pain, shortness of breath. Respiratory: Airway is patent Trachea midline Respiratory effort is even, unlabored, Respiratory pattern is regular, symmetrical. GI: No deficits noted. : No deficits noted. Historical: - Allergies: 20:11 No Known Allergies; tb4 - Home Meds: 20:11 lisinopril 10 mg Oral tab 1 tab once daily for Hypertension [Active]; clopidogrel 75 mg tb4 Oral tab 1 tab once daily [Active]; atorvastatin 20 mg Oral tab 1 tab once daily for Mixed Hyperlipidemia [Active]; - PMHx: 20:11 breast cancer; Hyperlipidemia; Hypertension; sarcoidosis; TIA; tb4 - Immunization history:: Adult Immunizations up to date. - Infectious Disease History:: Denies. - Social history:: Smoking status: Patient denies any tobacco usage or history of. Patient/guardian denies using alcohol, street drugs, IV drugs. Screenin:34 [facility] ED Fall Risk Assessment (Adult) History of falling in the last 3 months, sd4 including since admission No falls in past 3 months (0 pts) Confusion or Disorientation No (0 pts) Intoxicated or Sedated No (0 pts) Impaired Gait No (0 pts) Mobility Assist Device Used No (0 pt) Altered Elimination No (0 pt) Score/Fall Risk Level 0 - 2 = Low Risk Oriented to surroundings, Maintained a safe environment, Educated pt \T\ family on fall prevention, incl call for assistance when getting out of bed. Abuse screen: Denies threats or abuse. Denies injuries from another. Nutritional screening: No deficits noted. Tuberculosis screening: No symptoms or risk factors identified. Assessment: 20:34 General: Appears in no apparent distress. Behavior is calm, cooperative. Pain: Denies sd4 pain. n/a Pain began n/a. Neuro: Ortiz Agitation-Sedation Scale (RASS):. Cardiovascular: Reports palpitations, Denies chest pain, shortness of breath, Capillary refill < 3 seconds Rhythm is sinus tachycardia. Respiratory: No deficits noted. Airway is patent. GI: No deficits noted. No signs and/or symptoms were reported involving the gastrointestinal system. : No deficits noted. No signs and/or symptoms were reported regarding the genitourinary system. EENT: Reports Pt reports having nose surgery today. Bandage noted to the left side of her face. Denies. Derm: No deficits noted. No signs and/or symptoms reported regarding the dermatologic system. Musculoskeletal: No deficits noted. No signs and/or symptoms reported regarding the musculoskeletal system. Vital Signs: 20:08 BP 134 / 84; Pulse 120; Resp 18; Temp 98.7(O); Pulse Ox 97% on R/A; Weight 54.43 kg; tb4 Height 5 ft. 4 in. ; Pain 0/10; 20:34 BP 124 / 86; Pulse 109; Resp 20; Pulse Ox 96% ; sd4 22:26 BP 119 / 69; Pulse 60; Resp 18; Pulse Ox 97% ; sd4 0806 00:43 BP 111 / 61; Pulse 55; Resp 18; Pulse Ox 95% on R/A; sd4 10/27 20:08 Body Mass Index 20.60 (54.43 kg, 162.56 cm) tb4 10/27 20:08 Pain Scale: Adult tb4 ED Course: 10/27 19:31 Patient arrived in ED. jj6 19:33 Anthony Null PA is PHCP. cp 19:33 Hakeem Luther MD is Attending Physician. cp 20:11 Triage completed. tb4 20:11 Arm band placed on left wrist. tb4 20:14 Naomie Velasquez, RN is Primary Nurse. sd4 20:34 Radiology exam delayed due to lab results not completed at this time. (BUN/Creatinine) jc4 IV insertion attempt and/or patient not having appropriate IV at this time. 20:34 Patient has correct armband on for positive identification. Provided Education on: sd4 irregular heart rates. Client placed on continuous cardiac and pulse oximetry monitoring. NIBP monitoring applied. cementer on. 20:34 No provider procedures requiring assistance completed. Patient maintains SpO2 sd4 saturation greater than 95% on room air. 20:34 Inserted saline lock: 20 gauge in right forearm, using aseptic technique. Blood sd4 collected. Flushed with 10 mL NS. 20:51 UA Rfx Landen Cult if indicated Sent. sd4 20:51 Troponin HS Sent. sd4 20:51 PT-INR Sent. sd4 20:51 NT PRO-BNP Sent. sd4 20:51 Magnesium Sent. sd4 20:51 CBC with Diff Sent. sd4 20:51 Basic Metabolic Panel Sent. sd4 20:51 LFT's Sent. sd4 21:14 XRAY Chest (1 view) In Process Unspecified. EDMS 21:51 CT Chest For PE Angio In Process Unspecified. EDMS 23:34 Arnol Grissom, RN is Hospitalizing Provider. cp 10/28 01:17 Patient admitted, IV remains in place. sd4 Administered Medications: 10/27 21:02 Drug: Metoprolol IVP 2.5 mg IVP once Route: IVP; Site: right antecubital; sd4 10/28 00:45 Follow up: Response: No adverse reaction sd4 10/27 21:02 Drug: Metoprolol PO 12.5 mg PO once Route: PO; sd4 10/28 00:45 Follow up: Response: No adverse reaction sd4 10/27 22:36 Drug: NS 0.9% IV 500 ml 500 ml IV at 1 bolus once; to be given as a bolus over 30 sd4 minutes Volume: 500 ml; Route: IV; Rate: 1 bolus; Site: right forearm; 10/28 00:44 Follow up: Response: No adverse reaction; IV Status: Completed infusion 4 10/27 23:51 Drug: Aspirin PO Chewable Tablet 324 mg PO once; 81 mg tablets x 4 Route: PO; 4 10/28 00:44 Follow up: Response: No adverse reaction sd4 Medication: 10/27 20:34 VIS not applicable for this client. sd4 Outcome: 23:35 Decision to Hospitalize by Provider. renay 10/28 01:16 Admitted to Med/surg via stretcher, sd4 Condition: stable Discharge instructions given to patient, Instructed on discharge instructions, the need for admit, Demonstrated understanding of instructions, 02:25 Patient left the ED. sd4 Signatures: Dispatcher [employer] EDMS Anthony Null PA PA cp Jeffries, Jennifer jj6 Jayant Gill jc4 Cassy Arce, RN RN tb4 Naomie Velasquez, RN RN sd4
[2024-10-27] MEDS ORDERED: ASPIRIN 81 MG CHEWABLE TABLET ONE (23:48)
[2024-10-28] MEDS ORDERED: ACETAMINOPHEN 325 MG TABLET PO PRN (00:33)
--- NOTE | 2024-10-28 00:33 | P.HP ---
Certification for Inpatient Patient admitted to: Observation With expected LOS: >2 Midnights Practitioner: I am a practitioner with admitting privileges, knowledge of patient current condition, hospital course, and medical plan of care. Services: Services provided to patient in accordance with Admission requirements found in Title 42 Section 412.3 of the Code of Federal Regulations Patient History Date of Service: 10/28/24 Reason for admission: Palpitations, sinus tachycardia. History of Present Illness: Patient is a pleasant 68-year-old female who is very active swimming at least twice a week, with past medical history of hypercholesteremia, essential hypertension, breast cancer, with left mastectomy, who presents to the ER today complaining of palpitations, and rapid heart rate. Patient states about a week ago, she started experiencing rapid heart rate with palpitations even when resting. Patient states the rapid heart rate with palpitations is associated mild chest pain, and mild shortness of breath when active. Patient states today she went for surgery removal of mold left jaw at [facility], states postop, her heart rate was in the 110-115 sustained, states she was then instructed by the nurse to go to the ER. She states upon arrival to ER, her heart rate was 120, patient received metoprolol 5 mg IV x 1, metoprolol 20 mg p.o. x 1, and 500 IV NS. During admission assessment, patient was fully awake, alert and oriented x 3, she states she feels much better, denies of any palpitation at this time, chest pain or shortness of breath, patient is back to sinus rhythm with heart rate in the 60s. Allergies N Allergy (Uncoded 09/02/15 00:08) Unknown NK Allergy (Uncoded 02/06/15 20:09) Unknown Home Medications: Atorvastatin Calcium [Lipitor*] 20 mg PO DAILY 09/02/15 Clopidogrel Bisulfate [Clopidogrel] 75 mg PO DAILY 09/02/15 Fluoxetine HCl 20 mg PO DAILY 09/02/15 Lisinopril 5 mg PO DAILY 09/02/15 Metoprolol Tartrate [Lopressor*] 12.5 mg PO DAILY #30 tab 08/24/19 - Past Medical/Surgical History Diabetic: No -: HTN -: TIA -: breast ca -: hyperlipidemia -: L hip repair -: L mastectomy - Family History Father -: Heart disease, Kidney disease Mother -: Heart disease - Social History Smoking Status: Never smoker Alcohol use: No CD- Drugs: No Caffeine use: Yes Place of Residence: Home Review of Systems 10-point ROS is otherwise unremarkable Cardiovascular: Palpitations (With associated chest pain only with palpitat ions.) Physical Examination - Physical Exam General: Alert, Oriented x3, Cooperative HEENT: Atraumatic, Normocephalic, PERRLA, Mucous membr. moist/pink, Sclerae nonicteric Neck: Supple, 2+ carotid pulse no bruit, No LAD, Without JVD or thyroid abnormality Respiratory: Clear to auscultation bilaterally, Normal air movement Cardiovascular: No edema, Normal pulses, Regular rate/rhythm, Normal S1 S2, No gallops, No rubs, No murmurs Capillary refill: <2 Seconds Gastrointestinal: Normal bowel sounds, Soft and benign, W/out hepatomegaly, No ascites, No tenderness, No masses, No rebound, No guarding Musculoskeletal: No clubbing, No swelling, No contractures, No erythema, No tenderness, No warmth Integumentary: No rashes, No breakdown, No significant lesion, No tenderness/swelling, No erythema, No warmth, No cyanosis Neurological: Normal gait, Normal speech, Normal strength at 5/5 x4 extr, Normal tone, Sensation intact, Cranial nerves 3-12 intact, Normal reflexes 2+, Normal affect Lymphatics: No axilla or inguinal lymphadenopathy - Studies Laboratory Data (last 24 hrs) 10/27/24 10/27/24 10/27/24 20:50 20:50 20:50 WBC 4.00 L Hgb 12.8 Hct 35.2 L Plt Count 206 PT 11.4 INR 1.01 Sodium 136 Potassium 3.5 BUN 17 Creatinine 0.79 Glucose 115 H Magnesium 2.1 Total Bilirubin 0.6 AST 32 ALT 42 Alkaline Phosphatase 77 Female Exam - Breasts Breasts: Normal configuration Assessment and Plan - Plan Patient is a pleasant 68-year-old female admitted to observation with diagnosis of palpitations, and tachycardia. Patient received metoprolol 25 mg p.o., metoprolol 5 mg IV, patient is back to sinus rhythm. (1)Palpitations and tachycardia. -Order metoprolol 12.5 mg p.o. daily starting in a.m., to hold if heart rate is 65 or less. -Order echocardiogram. -Commissioned Fire Officer consult. -IV NS at 75ml/ hr x 1 L. -Monitor patient electrolytes including magnesium. (2)Chronic hypercholesterolemia. -Continue home medication atorvastatin 40 mg p.o. daily. (3)Chronic essential hypertension. -Continue home medication lisinopril 5 mg p.o. daily. (4)Explained the entire treatment plan to the patient, solicit questions answered and voiced understanding. Discharge Plan: Home Plan to discharge in: 48 Hours - Advance Directives Does patient have a Living Will: No Does patient have a Durable POA for Healthcare: No - Code Status/Comfort Care Code Status Assessed: Yes Code Status: Full Code Critical Care: No Time Spent Managing Pts Care (In Minutes): 55
[2024-10-28] MEDS: NA CHLORIDE 0.9% 1,000 ML IV SCH (02:41)
[2024-10-28 03:38] VITALS: BMI 20.5
[2024-10-28] MEDS: METOPROLOL XL 25 MG TAB PO SCH ×2 (06:00→12:24)
[2024-10-28 06:07] LABS: Absolute Lymphocytes (CBC) 0.5 K/uL (0.7-4.9); Hematocrit 34.7 % (36.0-45.0); Hemoglobin 12.5 g/dL (12.0-15.0); MCH 31.4 pg (27.0-35.0); MCHC 36.0 g/dL (32.0-36.0); MCV 87.4 fL (80-100); MPV 8.4 fL (7.6-11.3); Nucleated RBC Absolute Count 0.0 (0-0); Nucleated Red Blood Cells % 0.1 % (0-0); RBC Red Blood Cell Count 3.97 M/uL (3.86-4.86); White Blood Count 4.00 thou/uL (4.3-10.9)
[2024-10-28 06:32] LABS: ALT/SGPT 27.0 U/L (13-56); AST/SGOT 30.0 U/L (15-37); Albumin 3.5 g/dL (3.4-5.0); Albumin/Globulin Ratio 1.4 (1.1-1.8); Alkaline Phosphatase 65.0 U/L (45-117); Anion Gap 6.5 mEq/L (5.0-15.0); BUN Blood Urea Nitrogen 12.0 mg/dL (7-18); Globulin 2.5 g/dL (2.3-3.5); Glucose Level 88.0 mg/dL (74-106); Potassium 4.5 mEq/L (3.5-5.1); Troponin High Sensitivity 17.7 pg/mL (<58.9)
[2024-10-28] MEDS: CLOPIDOGREL 75 MG TABLET PO SCH (08:25)
[2024-10-28] MEDS: FLUOXETINE 20 MG CAP PO SCH (08:25)
[2024-10-28] MEDS: ENOXAPARIN 40 MG/0.4 ML SQ SCH (08:25)
--- NOTE | 2024-10-28 11:49 | P.CNS ---
Date of Consult: 10/28/24 Chief Complaint: Palpitations, sinus tachycardia. History of Present Illness: Patient with PMH of TIA, HTN, presented with palpitations that last all day yesterday, say that HR has been staying in the 100-120s, report occasional chest pain, no syncope, no breathing problems. Allergies No Known Allergies Allergy (Verified 10/28/24 02:52) Home medications list reviewed: Yes Home Medications: Atorvastatin Calcium [Lipitor*] 20 mg PO DAILY 09/02/15 Clopidogrel Bisulfate [Clopidogrel] 75 mg PO BEDTIME 09/02/15 Fluoxetine HCl 20 mg PO DAILY 09/02/15 Lisinopril 5 mg PO DAILY 09/02/15 Alendronate Sodium 1 tab PO EVERY 7TH DAY 10/28/24 - Past Medical/Surgical History Diabetic: No -: HTN -: TIA -: breast ca -: hyperlipidemia -: L hip repair -: L mastectomy - Family History Father Medical History: Heart disease, Kidney disease Mother Medical History: Heart disease - Social History Smoking Status: Never smoker Alcohol use: No CD- Drugs: No Caffeine use: Yes Place of Residence: Home Review of Systems 10-point ROS is otherwise unremarkable Physical Examination Temp Pulse Resp BP Pulse Ox 98.2 F 57 18 106/48 L 95 10/28/24 08:00 10/28/24 08:25 10/28/24 08:00 10/28/24 08:25 10/28/24 08:00 General: Alert, In no apparent distress HEENT: Atraumatic, PERRLA, Mucous membr. moist/pink, EOMI, Sclerae nonicteric Neck: Supple, 2+ carotid pulse no bruit, No LAD, Without JVD or thyroid abnormality Respiratory: Clear to auscultation bilaterally, Normal air movement Cardiovascular: Regular rate/rhythm, Normal S1 S2 Gastrointestinal: Normal bowel sounds, No tenderness Musculoskeletal: No tenderness Integumentary: No rashes Neurological: Normal gait, Normal speech, Normal tone, Normal affect Lymphatics: No axilla or inguinal lymphadenopathy Laboratory Data (last 24 hrs) 10/27/24 10/27/24 10/27/24 20:50 20:50 20:50 WBC 4.00 L Hgb 12.8 Hct 35.2 L Plt Count 206 PT 11.4 INR 1.01 Sodium 136 Potassium 3.5 BUN 17 Creatinine 0.79 Glucose 115 H Magnesium 2.1 Total Bilirubin 0.6 AST 32 ALT 42 Alkaline Phosphatase 77 - Problems (1) Palpitations Current Visit: Yes Status: Acute Plan: No EKG on chart, tele reviewed and shows sinus rhythm start Toprol XL 12.5 mg daily get echo, if normal then outpatient follow up with cardiology for event monitor. (2) Chest pain Onset Date: 09/02/15 Current Visit: No Status: Acute Plan: troponin negative echo, if normal then outpatient follow up with cardiology for cardiac PET. (3) Hypertension Current Visit: No Status: Acute Plan: D/C Lisinopril start Toprol XL 12.5 mg daily (4) History of TIA (transient ischemic attack) Current Visit: Yes Status: Acute Plan: continue Plavix 75 mg daily continue statin
--- NOTE | 2024-10-28 16:43 | P.PN ---
Date of Service: 10/28/24 Patient seen and examined. She has no complaint. Heart rate fluctuates but overall has been bradycardic most of the day. Cardiology input appreciated. Patient started on Toprol-XL 12.5 mg daily Continue telemetry Echocardiogram is pending. Antihypertensive discontinued.
[2024-10-29 05:10] LABS: Absolute Lymphocytes (CBC) 0.5 K/uL (0.7-4.9); Hematocrit 33.2 % (36.0-45.0); Hemoglobin 11.9 g/dL (12.0-15.0); MCH 31.5 pg (27.0-35.0); MCHC 36.0 g/dL (32.0-36.0); MCV 87.5 fL (80-100); MPV 8.4 fL (7.6-11.3); Nucleated RBC Absolute Count 0.0 (0-0); Nucleated Red Blood Cells % 0.1 % (0-0); RBC Red Blood Cell Count 3.79 M/uL (3.86-4.86); White Blood Count 3.10 thou/uL (4.3-10.9)
[2024-10-29 05:23] LABS: ALT/SGPT 32.0 U/L (13-56); AST/SGOT 21.0 U/L (15-37); Albumin 3.4 g/dL (3.4-5.0); Albumin/Globulin Ratio 1.4 (1.1-1.8); Alkaline Phosphatase 56.0 U/L (45-117); Anion Gap 8.0 mEq/L (5.0-15.0); BUN Blood Urea Nitrogen 15.0 mg/dL (7-18); Globulin 2.4 g/dL (2.3-3.5); Glucose Level 88.0 mg/dL (74-106); Potassium 4.0 mEq/L (3.5-5.1)
--- NOTE | 2024-10-29 07:38 | ECHO ---
HEIGHT: 5 ft 4 in WEIGHT: 120 lb 0 oz DATE OF STUDY: 10/28/[address]: Mckinley Castro MD 2-DIMENSIONAL: YES M.MODE: YES DOPPLER: YES COLOR FLOW: YES TDS: PORTABLE: YES DEFINITY: BUBBLE STUDY: DIAGNOSIS: PALPITATIONS/ SINUS TACHYCARDIA CARDIAC HISTORY: CATHERIZATION: SURGERY: PROSTHETIC VALVE: PACEMAKER: MEASUREMENTS (cm) DIASTOLIC (NORMALS) SYSTOLIC (NORMALS) IVSd 1.0 (0.6-1.2) LA Diam 3.1 (1.9-4.0) LVEF 55% LVIDd 4.4 (3.5-5.7) LVIDs 4.2 (2.0-3.5) %FS LVPWd 1.0 (0.6-1.2) Ao Diam 3.3 (2.0-3.7) 2 DIMENSIONAL ASSESSMENT: RIGHT ATRIUM: NORMAL LEFT ATRIUM: MILDLY DILATED RIGHT VENTRICLE: NORMAL LEFT VENTRICLE: NORMAL TRICUSPID VALVE: MILD TRICUSPID REGURGITATION MITRAL VALVE: NORMAL PULMONIC VALVE: NORMAL AORTIC VALVE: NORMAL PERICARDIAL EFFUSION: NONE AORTIC ROOT: NORMAL LEFT VENTRICULAR WALL MOTION: NORMAL LEFT VENTRICULAR SYSTOLIC FUNCTION DOPPLER/COLOR FLOW: NORMAL DIASTOLIC FUNCTION COMMENTS: 1. NORMAL LEFT VENTRICULAR SYSTOLIC FUNCTION, EJECTION FRACTION 55%, NORMAL WALL MOTION 2. NORMAL DIASTOLIC FUNCTION TECHNOLOGIST: JOHNSON MOORE
--- NOTE | 2024-10-29 09:00 | P.DS ---
Admission Date: 10/28/24 Discharge Date: 10/29/24 Disposition: ROUTINE DISCHARGE Discharge Condition: GOOD Reason for Admission: Palpitations, sinus tachycardia. Brief History of Present Illness: 68-year-old woman with past medical history of hypercholesteremia, essential hypertension, breast cancer, with left mastectomy, presented to the ER today complaining of palpitations, and rapid heart rate. Patient had surgery done with removal of mold left jaw at [facility], and reports she had rapid heart rate during the postop follow-up. She stated she was then instructed by the nurse to go to the ER. Her heart rate was 120 in the ED. Patient received metoprolol 5 mg IV x 1, metoprolol 20 mg p.o. x 1, and 500 IV NS after which patient heart rate improved. EKG shows sinus tachycardia, troponin negative. Patient was hospitalized for further management. Hospital Course: Diagnosis: Sinus tachycardia Palpitation Hypertension Patient admitted to the medical floor, troponin trended negative. Patient seen and evaluated by cardiology Dr. Valente recommended low-dose Toprol- XL 12.5 mg daily. Patient is on lisinopril for hypertension which was discontinued given soft blood pressure. Patient blood pressure was stable on Toprol-XL, heart rate was mostly in the 50s, 47 at some point. Patient is currently asymptomatic. Patient deemed stable for discharge by cardiology. Vital Signs/Physical Exam: Temp Pulse Resp BP Pulse Ox 97.9 F 47 L 18 110/52 L 95 10/29/24 04:00 10/29/24 06:00 10/29/24 04:00 10/29/24 06:00 10/29/24 04:00 General: Alert, In no apparent distress, Oriented x3 Neck: JVD not distended Respiratory: Clear to auscultation bilaterally, Normal air movement Cardiovascular: No edema, Normal pulses, Regular rate/rhythm Gastrointestinal: Normal bowel sounds, Soft and benign, Non-distended Musculoskeletal: No swelling Neurological: Normal strength at 5/5 x4 extr Laboratory Data at Discharge: WBC 3.10 thou/uL (4.3-10.9) L 10/29/24 04:24 Hgb 11.9 g/dL (12.0-15.0) L 10/29/24 04:24 Hct 33.2 % (36.0-45.0) L 10/29/24 04:24 Plt Count 175 thou/uL (152-406) 10/29/24 04:24 PT 11.4 SECONDS (10-13.0) 10/27/24 20:50 INR 1.01 10/27/24 20:50 Sodium 142 mEq/L (136-145) 10/29/24 04:24 Potassium 4.0 mEq/L (3.5-5.1) 10/29/24 04:24 BUN 15 mg/dL (7-18) 10/29/24 04:24 Creatinine 0.69 mg/dL (0.55-1.02) 10/29/24 04:24 Glucose 88 mg/dL (74-106) 10/29/24 04:24 Magnesium 2.1 mg/dL (1.6-2.4) 10/27/24 20:50 Total Bilirubin 0.7 mg/dL (0.2-1.0) 10/29/24 04:24 AST 21 U/L (15-37) 10/29/24 04:24 ALT 32 U/L (13-56) 10/29/24 04:24 Alkaline Phosphatase 56 U/L (45-117) 10/29/24 04:24 Home Medications: Atorvastatin Calcium [Lipitor*] 20 mg PO DAILY 09/02/15 Clopidogrel Bisulfate [Clopidogrel] 75 mg PO BEDTIME 09/02/15 Fluoxetine HCl 20 mg PO DAILY 09/02/15 Alendronate Sodium 1 tab PO EVERY 7TH DAY 10/28/24 Metoprolol Succinate [Toprol Xl*] 12.5 mg PO [id number] #30 tab 10/29/24 New Medications: Metoprolol Succinate [Toprol Xl*] 12.5 mg PO [id number] #30 tab Physician Discharge Instructions: Your heart fluctuated during the hospital stay and you were diagnosed with sinus tachycardia. Echocardiam was done which was unremarkable. Cardiology evaluated you and recommended you take Metoprolol XL 12.5 mg daily for the sinus tachycardia. Please check your blood pressure and heart rate before you the the Metoprolol XL. Do not take Metoprolol XL if your systolic BP is less than 90 or heart rate is less than 50. You can recheck your BP if you experience palpitation and increased heart rate to see if you can the metoprolol XL to reduce your heart rate. Diet: AHA Activity: Fall precautions Followup: Cabrera Valente MD [ACTIVE - CAN ADMIT] - 1 Week Anabela Moreno MD [Primary Care Provider] - Time spent managing pt's care (in minutes): 32
[2024-10-29 09:20] VITALS: BP 113/59; TEMP 98.3
[2024-10-29 10:27] VITALS: O2SAT 97
[2024-10-29] MEDS ORDERED: METOPROLOL XL 25 MG TAB PO SCH ×2 (11:34)
== END 2024-10-29 11:00 | disposition home or self-care (01) | DRG 310 ==
LOC: ER 19:29 → 4TH 10-28 00:28 → OBSVTOIN 10-28 16:42
PROVIDERS: ADMIT Internal Medicine; ATTEND Internal Medicine
DX: R00.0 Tachycardia, unspecified (principal); R00.2 Palpitations; I10 Essential (primary) hypertension; Z85.3 Personal history of malignant neoplasm of breast; Z90.12 Acquired absence of left breast and nipple; Z79.899 Other long term (current) drug therapy; E78.5 Hyperlipidemia, unspecified; Z98.890 Other specified postprocedural states; Z86.73 Personal history of transient ischemic attack (TIA), and cerebral infarction without residual deficits; Z82.49 Family history of ischemic heart disease and other diseases of the circulatory system; Z79.02 Long term (current) use of antithrombotics/antiplatelets
CPT/HCPCS: 36415; 71045; 71275; 80048; 80053; 80076; 81003; 83735; 83880; 84484; 85025; 85610; 93005; 93306; 96361; 96374; 99285; G0378; J1650; J7030; J7040; Q9967